=== PATIENT | female | born 1955 | race Caucasian/White ===

== ENCOUNTER 2020-05-15 10:13 | Outpatient (REF) | payer MEDICARE, SELFPAY ==
[2020-05-15 11:06] LABS: Alanine Aminotransferase 21 U/L (0-31); Anion Gap 15 (12-20); Aspartate Amino Transferase 22 U/L (5-31); Blood Urea Nitrogen 19 mg/dL (9-16); Carbon Dioxide 23 mmol/L (22-29); Chloride 104 mmol/L (96-108); Estimated Glomerular Filt Rate > 60; Potassium 4.6 mmol/L (3.3-5.1); Sodium 137 mmol/L (135-145)
[2020-05-15 12:34] LABS: Carbamazepine Tegretol 4.7 mcg/mL (5.0-12.0)
== END 2020-05-15 10:14 | disposition home or self-care (01) ==
LOC: HO.LAB 10:13
PROVIDERS: PCP Student in an Organized Health Care Education/Training Program; Visit Provider Family Medicine
DX: I10 Essential (primary) hypertension (principal); Z79.899 Other long term (current) drug therapy
CPT/HCPCS: 36415; 80051; 80156; 82565; 84450; 84460; 84520

== ENCOUNTER 2020-12-18 14:08 | Outpatient (REF) | payer MEDICARE, SELFPAY ==
[2020-12-18 15:25] LABS: Appearance Urine CLEAR; Color Urine YELLOW; Glucose Urine UA NEG (NEG); Leukocyte Esterase Urine NEG (NEG); Nitrite Urine NEG (NEG); Urine Blood NEG (NEG); Urine Ketones NEG (NEG); Urine Protein NEG (NEG-TRACE)
== END 2020-12-18 14:09 | disposition home or self-care (01) ==
LOC: HO.LAB 14:08
PROVIDERS: PCP Family Medicine; Visit Provider Family Medicine
DX: R30.0 Dysuria (principal); R35.0 Frequency of micturition
CPT/HCPCS: 81003; 87086

== ENCOUNTER 2021-03-13 13:52 | Outpatient (REF) | payer MEDICARE, SELFPAY ==
--- NOTE | ~2021-03-13 | CT_ITS ---
EXAMINATION: CT CHEST SCREENING CLINICAL INFORMATION: Nicotine dependence. COMPARISON: Chest 02/19/2019 TECHNIQUE: Multidetector volumetric CT imaging of the chest is performed without contrast using low dose technique. Additional 2-D coronal and sagittal reformatted images and axial 3-D maximum intensity projection (MIP) images are generated on the CT workstation. This CT examination was performed using dose optimization techniques as appropriate, variously including the following: *Automated exposure control *Adjustment of mA and/or kV according to patient size (this includes techniques or standardized protocols for targeted exams where dose is matched to indication/reason for exam; i.e. extremities or head) *Use of iterative reconstruction technique DLP: 203 mGy-cm FINDINGS: LUNGS: There are mild centrilobular emphysematous changes of both lungs. There is a 3 mm nodule left upper lobe axial image 126/6, 3 mm nodule right upper lobe axial image 126/6, 2 mm nodule right upper lobe axial image 147/6, 3 mm nodule right upper lobe image 247/6, 3 mm nodule right middle lobe axial image 255/6, several micronodules scattered in both upper lobes and both lower lobes. There is mild bronchial wall thickening in both lower lobes and both upper lobes likely from chronic airway disease. MEDIASTINUM: The thyroid lobes are symmetric and normal. The central trachea and bronchi are widely patent. The heart size and the great vessels are normal caliber. No abnormal sized mediastinal lymph nodes or mass seen. PLEURA: There is no pleural effusion or plaque. There is mild thickening of left diaphragmatic pleura. AXILLA: Small shotty lymph nodes are seen in the axilla. UPPER ABDOMEN: There are gastric bypass surgical changes. Visualized liver, spleen, pancreas, and left adrenal gland appear unremarkable. There is a right adrenal 2.3 cm lesion measuring -20 Hounsfield units, likely a lipoma. The gallbladder is out. OSSEOUS STRUCTURES: There are degenerative disc changes with spondylosis of dorsal spine. No lytic or sclerotic process seen. Mild chronic airway disease with peribronchial wall thickening. CT/CT lung screening IMPRESSION: There is centrilobular emphysema with multiple pulmonary nodules in the range of 2-3 mm. ASSESSMENT: Lung-RADS category 2: Benign. RECOMMENDATION: Low-dose annual CT chest exam.
== END 2021-03-13 13:53 | disposition home or self-care (01) ==
LOC: HO.CT 13:52
PROVIDERS: PCP Family Medicine; Visit Provider Physician Assistant Medical
DX: Z12.2 Encounter for screening for malignant neoplasm of respiratory organs (principal); F17.210 Nicotine dependence, cigarettes, uncomplicated
CPT/HCPCS: 71271; G0296

== ENCOUNTER 2021-04-29 09:34 | Emergency (ER) | payer MEDICARE, SELFPAY ==
[2021-04-29 09:37] VITALS: BP 150/74; PULSE 59; RESP 16; TEMP 36.6; O2SAT 100; BMI 29.0
--- NOTE | 2021-04-29 11:17 | ED_ITS ---
HPI - Allergic Reaction General Chief complaint: Allergic Reaction Stated complaint: quest allergic reaction diff to swallow Time Seen by Provider: 04/29/21 11:30 Source: patient Mode of arrival: ambulatory Limitations: no limitations History of Present Illness HPI narrative: 65-year-old female presents to the ED with past medical history of high blood pressure presents to ED for allergic reaction. Patient states this morning around 02:00 she woke up with her tongue swollen and left side of face swollen. Patient states she was asymptomatic before going to sleep. Patient states yesterday he had bark grinder for the 1st time and does not know if that is the cause of her allergic reaction. Patient states she also takes lisinopril for her blood pressure. Patient states she last took it yesterday. This morning she discuss case with her primary care provider took her off lisinopril and told her to go to the ER. Patient states facial swelling and tongue swelling has improved. Patient feels like some Benadryl stuck in the throat. Patient states she took Benadryl this morning swallowed it. Patient denies any recent dental work Related Data Previous Rx's Medication Instructions Recorded diphenhydramine HCl 25 mg capsule 25 mg PO TID PRN 10 Days #30 cap 04/29/21 (Benadryl) epinephrine 0.3 mg/0.3 mL 0.3 mg (0.3 mL) IM Q10M PRN #2 ea 04/29/21 injection, auto-injector famotidine 20 mg tablet (Pepcid) 20 mg PO BID 10 Days #20 tab 04/29/21 prednisone 20 mg tablet 40 mg PO DAILY 5 Days #10 tab 04/29/21 Allergies Allergy/AdvReac Type Severity Reaction Status Date / Time Iodinated Contrast Allergy Unknown UNKNOWN Unverified 12/20/19 16:04 Media [IV Dye, Iodine Containing] From Demerol Allergy Intermediate SICK Uncoded 12/20/19 16:04 Review of Systems Verdana 4l Review of Systems: Verdana 4d Left-sided facial swelling Verdana 4d and tongue swelling Verdana 4d Yes all other systems are reviewed and are negative [facility] Past Medical History Medical History (Updated 04/29/21 @ 14:22 by ABDOUL Briscoe) History of subdural hematoma History of uterine cancer Hypertension, essential, benign Personal history of nicotine dependence Surgical History (Updated 03/13/21 @ 13:41 by Arely Chiu PA-C) History of appendectomy History of cholecystectomy History of Michaela-en-Y gastric bypass History of total hysterectomy Social History Social History (Updated 03/13/21 @ 13:53 by Arely Chiu PA-C) Patient Tobacco Use Status: Current everyday Tobacco user Tobacco use type: Cigarette Cigarette Packs Per Day: 10 Years Smoked: onset 14, x 33yrs - max 1ppd, currently 1/2ppd, 30pyh Advance Directives: Yes Advance Directives Information Provided: Yes Advance Directives on File: No Physical Exam Verdana 4l Vital Signs: Verdana 4d Verdana 4d Vital Signs: Verdana 4d Verdana 4Bd Last Vital Signs Verdana 4d Supervisor Fertilizer New 4d Supervisor Fertilizer New 4d Temp 97.7 F 04/29/21 12:00 Supervisor Fertilizer New 4d Pulse 55 04/29/21 12:00 Supervisor Fertilizer New 4d Resp 18 04/29/21 12:00 BP 134/69 04/29/21 12:00 Pulse Ox 100 04/29/21 12:00 BMI result Body Mass Index 29.0 Const: General: cooperative, healthy appearing, comfortable, no acute distress, well developed, alert, awake and Physically active Orientation/consciousness: oriented to time and patient oriented x3 HENMT: Other: Face no longer swollen. On my exam slight swelling of tongue. patient uvula slightly swollen. Negative for any dental caries. Patient speaking in full sentences. Eyes: General: appearance normal, both eyes and all related structures Neck: Neck: Yes normal visual inspection, Yes full ROM, Yes no lymphadenopathy, Yes no meningeal signs, Yes trachea midline, Yes supple, Yes anterior neck swelling and No tender Chest: Chest palpation & inspection: normal inspection of the chest and normal palpation of entire chest wall Resp: Effort & Inspection: normal respiratory effort and able to speak in complete sentences Auscultation: clear to auscultation bilaterally Cardio: Jugular venous distension: no JVD Heart sounds: S1 normal heart sound present and S2 normal heart sound present GI: Inspection: Yes normal to inspection and No abdominal wall ecchymosis Palpation (GI): Soft to palpation, not firm, nontender, no guarding and not rigid : General: No CVA tenderness and Yes no CVA tenderness Back/Spine/Pelvis: Back: no CVA tenderness, No CVA tenderness and No back tenderness Skin: General skin exam: no rashes or lesions noted and elasticity normal Neuro: General: oriented to time, patient oriented x3, gait normal, no meningeal signs and CN's II-XI intact bilaterally Cranial nerves: Yes CN's II-XII intact bilaterally Extrem: General: Yes normal to inspection and Yes full ROM Psych: Appearance: grossly normal, well kempt and not disheveled Course Course Course Narrative: Presently patient is not in any respiratory distress. Will order Benadryl, Solu-Medrol, and Pepcid. Will re-evaluate patient Reevaluation(s) Reevaluation #1: After being in the ER for Four hours patient states feeling significantly better. Patient no longer has a sensation of tongue being swollen. Patient states she is able to swallow her Benadryl pills. Patient was informed she will be discharged with Benadryl, Pepcid, and prednisone. Discussion was brought up i n regards to EpiPEN, but patient states her PCP did not recommend her using epi pen due to her age and of Blood pressure. Spoke with Dr. Quick, her PCP, and he states it was ok to prescribe patient with epipen and to only use in emergency such as anayphylaxis. Time: 14:21 MDM - Allergic Reaction MDM Narrative Medical decision making narrative: Allergic reaction Discharge Plan Discharge Clinical Impression: Allergic reaction Patient Disposition: Home, Self-Care Instructions: General Allergic Reaction (ED) Additional Instructions: Return to the ED immediately for shortness of breath, chest pain, swelling of tongue, swelling of lips, facial swelling, sensation of throat closing, rash, or any other concerning symptoms. You will be prescribed medication for allergic reaction. Please follow-up with primary care provider. Prescriptions: New diphenhydramine HCl [Benadryl] 25 mg capsule 25 mg PO TID PRN (Reason: allergic reaction) 10 Days Qty: 30 0RF famotidine [Pepcid] 20 mg tablet 20 mg PO BID 10 Days Qty: 20 0RF prednisone 20 mg tablet 40 mg PO DAILY 5 Days Qty: 10 0RF epinephrine 0.3 mg/0.3 mL auto-injector 0.3 mg IM Q10M PRN (Reason: anaphylaxis) Qty: 2 0RF Rx Instructions: for 2 doses. Use only for anaphylaxis reaction. inject into thigh. Stand Alone Forms: Work/School Release Interventions: ED Discharge Assessment Last Done: 04/29/21 14:32 Discharge Date/Time: 04/29/21 14:33 Print Language: Occitan
[2021-04-29] MEDS: diphenhydrAMINE HCL 50 MG/ML VIAL IVPUSH (11:42)
[2021-04-29] MEDS: Famotidine/PF 20 MG/2 ML VIAL IVPUSH (11:42)
[2021-04-29] MEDS: methylPREDNISolone Sod Succ 125 MG/2 ML VIAL IVPUSH (11:42)
[2021-04-29 12:00] VITALS: BP 134/69; PULSE 55; RESP 18; TEMP 36.5; O2SAT 100
--- NOTE | 2021-04-29 12:10 | PC.NURSE ---
patient a&ox3, vss, pt ambulated independently to bathroom, pt medicated per order, call [place] withinr each, will continue to monitor
== END 2021-04-29 14:33 | disposition home or self-care (01) ==
PROVIDERS: Emergency Provider Emergency Medicine; PCP Family Medicine
DX: T78.40XA Allergy, unspecified, initial encounter (principal); R22.0 Localized swelling, mass and lump, head; X58.XXXA Exposure to other specified factors, initial encounter
CPT/HCPCS: 96374; 96375; 99284; J1200; J2930

== ENCOUNTER 2022-01-20 10:20 | Outpatient (REF) | payer MEDICARE, SELFPAY ==
[2022-01-20 12:46] LABS: Alanine Aminotransferase 12 U/L (0-31); Anion Gap 15 (12-20); Aspartate Amino Transferase 16 U/L (5-31); Blood Urea Nitrogen 16 mg/dL (9-16); Carbon Dioxide 24 mmol/L (22-29); Chloride 106 mmol/L (96-108); Estimated Glomerular Filt Rate > 60; Potassium 4.2 mmol/L (3.3-5.1); Sodium 141 mmol/L (135-145)
[2022-01-20 12:55] LABS: Carbamazepine Tegretol 5.1 mcg/mL (5.0-12.0)
== END 2022-01-20 10:21 | disposition home or self-care (01) ==
LOC: HO.LAB 10:20
PROVIDERS: PCP Family Medicine; Visit Provider Family Medicine
DX: I10 Essential (primary) hypertension (principal); Z79.899 Other long term (current) drug therapy
CPT/HCPCS: 36415; 80051; 80156; 82565; 84450; 84460; 84520

== ENCOUNTER 2022-07-20 08:49 | Outpatient (REF) | payer MEDICARE, SELFPAY ==
--- NOTE | ~2022-07-20 | CT_ITS ---
EXAMINATION: CT CHEST SCREENING CLINICAL INFORMATION: Current smoker. 51 pack year history. COMPARISON: Previous exam March 2021 TECHNIQUE: Multidetector volumetric CT imaging of the chest is performed without contrast using low dose technique. Additional 2D coronal and sagittal reformatted images and axial 3D maximum intensity projection (MIP) images are generated on the CT workstation. This CT examination was performed using dose optimization techniques as appropriate, variously including the following: *Automated exposure control *Adjustment of mA and/or kV according to patient size (this includes techniques or standardized protocols for targeted exams where dose is matched to indication/reason for exam; i.e. extremities or head) *Use of iterative reconstruction technique DLP: 46 mGy-cm FINDINGS: LUNGS: Mild emphysema. Small stable bilateral upper lung nodules largest measuring 3 mm for example axial image 127 series 5 and 135 series 5 left upper lobe and 3 mm in the right upper lobe axial image 214 series 5. No new pulmonary nodules. No endobronchial or endotracheal lesion.. MEDIASTINUM: The mediastinum is normal. CORONARY ARTERY CALCIFICATION: None visualized on this study. PLEURA: There is no pleural effusion. No pleural mass or thickening. AXILLA: No lymphadenopathy. UPPER ABDOMEN: Postsurgical changes to the stomach. Stable low-attenuation 2 cm right adrenal nodule. This probably represents a benign adenoma. No imaging follow-up recommended. Cholecystectomy. OSSEOUS STRUCTURES: Degenerative changes of the spine. CT/CT lung screening IMPRESSION: Mild emphysema. Stable small pulmonary nodules or micronodules. ASSESSMENT: Lung-RADS category 2: Benign RECOMMENDATION: Annual low-dose chest CT follow-up recommended
[2022-07-20 09:22] LABS: MANUAL DIFF FLAG NO
[2022-07-20 09:30] LABS: Basophils Absolute Auto 0.1 X10*3/uL (0.0-0.2); Basophils Percent Auto 0.9 % (0-2); Eosinophils Absolute Auto 0.1 X10*3/uL (0.0-0.4); Eosinophils Percent Auto 1.6 % (0-4); Hematocrit 45.2 % (37.0-47.0); Hemoglobin 15.2 g/dl (12.0-16.0); Imm Gran Abs Auto 0.03 X10*3/uL (0.00-0.03); Imm Gran Pct Auto 0.4 % (0.0-0.4); Lymphocytes Absolute Auto 1.7 X10*3/uL (1.2-4.9); Lymphocytes Percent Auto 21.3 % (20-40); Mean Corpuscular HGB Conc 33.6 g/dl (31.0-35.0); Mean Corpuscular Hemoglobin 33.3 pg (27.0-33.0); Mean Corpuscular Volume 99.1 fL (80.0-98.0); Mean Platelet Volume 9.7 fL (9.4-12.3); Monocytes Absolute Auto 0.6 X10*3/uL (0.1-1.2); Neutrophils Absolute Auto 5.3 x10*3/uL (2.0-8.3); Neutrophils Percent Auto 67.8 % (45-73); Platelet Count 219 X10*3/uL (160-400); Red Blood Count 4.56 X10*6/uL (4.20-5.50); Red Cell Distribution Width 13.2 % (11.0-16.0); White Blood Count 7.9 X10*3/uL (4.8-10.8)
[2022-07-20 10:05] LABS: Carbamazepine Tegretol 7.8 mcg/mL (5.0-12.0)
[2022-07-20 10:08] LABS: Alanine Aminotransferase 16 U/L (0-31); Anion Gap 17 (12-20); Aspartate Amino Transferase 18 U/L (5-31); Blood Urea Nitrogen 13 mg/dL (9-16); Carbon Dioxide 24 mmol/L (22-29); Chloride 100 mmol/L (96-108); Estimated Glomerular Filt Rate > 60; Potassium 4.5 mmol/L (3.3-5.1); Sodium 136 mmol/L (135-145)
== END 2022-07-20 08:50 | disposition home or self-care (01) ==
LOC: HO.CT 08:49
PROVIDERS: Absent Provider Family Medicine; PCP Family Medicine; Visit Provider Physician Assistant Medical
DX: Z12.2 Encounter for screening for malignant neoplasm of respiratory organs (principal); F17.210 Nicotine dependence, cigarettes, uncomplicated; I10 Essential (primary) hypertension; D64.9 Anemia, unspecified; Z79.899 Other long term (current) drug therapy
CPT/HCPCS: 36415; 71271; 80051; 80156; 82565; 84450; 84460; 84520; 85025

== ENCOUNTER 2023-03-04 10:01 | Outpatient (REF) | payer MEDICARE, SELFPAY ==
[2023-03-04 10:59] LABS: Carbamazepine Tegretol 7.2 mcg/mL (5.0-12.0)
[2023-03-04 11:04] LABS: Anion Gap 15 (12-20); Blood Urea Nitrogen 14 mg/dL (9-16); Carbon Dioxide 23 mmol/L (22-29); Chloride 106 mmol/L (96-108); Estimated Glomerular Filt Rate > 60; Potassium 4.3 mmol/L (3.3-5.1); Sodium 140 mmol/L (135-145)
== END 2023-03-04 10:02 | disposition home or self-care (01) ==
LOC: HO.LAB 10:01
PROVIDERS: PCP Family Medicine; Visit Provider Family Medicine
DX: I10 Essential (primary) hypertension (principal); Z79.899 Other long term (current) drug therapy
CPT/HCPCS: 36415; 80051; 80156; 82565; 84520

== ENCOUNTER 2023-08-11 08:35 | Outpatient (REF) | payer MEDICARE, SELFPAY ==
--- NOTE | ~2023-08-11 | CT_ITS ---
EXAMINATION: CT LOW-DOSE SCREENING CHEST WITHOUT CONTRAST CLINICAL INFORMATION: Nicotine dependence, cigarettes, uncomplicated. The patient is a current smoker with a 52 pack-year history of smoking. COMPARISON: CT chest 07/20/2022. X-ray chest 02/19/2019. TECHNIQUE: Multidetector volumetric CT imaging of the chest is performed on a Siemens SOMATOM Definition scanner without contrast using low dose technique. Additional 2D coronal and sagittal reformatted images and axial 3D maximum intensity projection (MIP) images are generated on the CT workstation. This CT examination was performed using dose optimization techniques as appropriate, variously including the following: *Automated exposure control *Adjustment of mA and/or kV according to patient size (this includes techniques or standardized protocols for targeted exams where dose is matched to indication/reason for exam; i.e. extremities or head) *Use of iterative reconstruction technique TOTAL EXAM DLP: 47 mGy-cm. CTDIvol: 1.43 mGy. FINDINGS: PULMONARY NODULES: Small pulmonary nodules are again seen the largest measuring 4 mm in the left upper lobe and unchanged (5:161 compare prior 5:147). Dennis images of all nodules have been saved. LUNGS: Lungs bilaterally symmetrically expanded. There is mild emphysema with mild bronchial thickening. No effusion or pneumothorax. Central airways patent. MEDIASTINUM: No mediastinal, hilar or axillary adenopathy or free fluid collection. CORONARY ARTERY CALCIFICATION: None visualized on this study. THYROID GLAND: Unremarkable to the extent seen. CARDIOVASCULAR STRUCTURES: Aortic and heart size normal. No pericardial effusion. CHEST WALL/AXILLA: Unremarkable. UPPER ABDOMEN: Status post cholecystectomy. Fat density 2.4 cm right adrenal nodule unchanged consistent with a benign adenoma. No followup is needed. Included portions of the solid organs in the upper abdomen unremarkable on noncontrast imaging. OSSEOUS STRUCTURES: No suspicious focal findings. Mild degenerative changes are present in the spine. CT/CT lung screening IMPRESSION: Stable benign nodules with no evidence of malignancy. ASSESSMENT: 1. Lung-RADS Category 2: Benign appearance or behavior of nodules. N/A. 2. Lung-RADS Category S: Negative. There are no clinically significant or potentially clinically significant findings not related to the lungs requiring urgent additional evaluation. RECOMMENDATION: Continued routine annual low-dose CT lung screening in 1 year is recommended. An order for CT CHEST LOW DOSE CANCER SCREENING ([id number]) can be placed.
== END 2023-08-11 08:36 | disposition home or self-care (01) ==
LOC: HO.CT 08:35
PROVIDERS: PCP Family Medicine; Visit Provider Nurse Practitioner Family
DX: Z12.2 Encounter for screening for malignant neoplasm of respiratory organs (principal); F17.210 Nicotine dependence, cigarettes, uncomplicated
CPT/HCPCS: 71271

== ENCOUNTER 2023-09-30 09:39 | Outpatient (REF) | payer MEDICARE, SELFPAY ==
[2023-09-30 09:57] LABS: MANUAL DIFF FLAG NO
[2023-09-30 10:39] LABS: Basophils Absolute Auto 0.1 X10*3/uL (0.0-0.2); Basophils Percent Auto 0.9 % (0-2); Eosinophils Absolute Auto 0.1 X10*3/uL (0.0-0.4); Eosinophils Percent Auto 1.6 % (0-4); Hematocrit 40.7 % (37.0-47.0); Hemoglobin 13.6 g/dl (12.0-16.0); Imm Gran Abs Auto 0.03 X10*3/uL (0.00-0.03); Imm Gran Pct Auto 0.5 % (0.0-0.4); Lymphocytes Absolute Auto 1.5 X10*3/uL (1.2-4.9); Lymphocytes Percent Auto 23.3 % (20-40); Mean Corpuscular HGB Conc 33.4 g/dl (31.0-35.0); Mean Corpuscular Hemoglobin 33.9 pg (27.0-33.0); Mean Corpuscular Volume 101.5 fL (80.0-98.0); Mean Platelet Volume 9.4 fL (9.4-12.3); Monocytes Absolute Auto 0.6 X10*3/uL (0.1-1.2); Monocytes Percent Auto 9.1 % (2-11); Neutrophils Absolute Auto 4.1 x10*3/uL (2.0-8.3); Neutrophils Percent Auto 64.6 % (45-73); Platelet Count 206 X10*3/uL (160-400); Red Blood Count 4.01 X10*6/uL (4.20-5.50); Red Cell Distribution Width 12.9 % (11.0-16.0); White Blood Count 6.4 X10*3/uL (4.8-10.8)
[2023-09-30 11:12] LABS: Alanine Aminotransferase 16 U/L (0-31); Anion Gap 14 (12-20); Aspartate Amino Transferase 20 U/L (5-31); Blood Urea Nitrogen 14 mg/dL (9-16); Carbon Dioxide 23 mmol/L (22-29); Chloride 106 mmol/L (96-108); Potassium 4.2 mmol/L (3.3-5.1); Sodium 139 mmol/L (135-145)
[2023-09-30 11:26] LABS: Carbamazepine Tegretol 5.1 mcg/mL (5.0-12.0)
== END 2023-09-30 09:40 | disposition home or self-care (01) ==
LOC: HO.LAB 09:39
PROVIDERS: PCP Family Medicine; Visit Provider Family Medicine
DX: I10 Essential (primary) hypertension (principal); D50.9 Iron deficiency anemia, unspecified; Z79.899 Other long term (current) drug therapy
CPT/HCPCS: 36415; 80051; 80156; 82550; 84450; 84460; 84520; 85025

== ENCOUNTER 2024-02-24 13:26 | Outpatient (REF) | payer MEDICARE, SELFPAY ==
[2024-02-24 11:07] VITALS: PULSE 55; O2SAT 98
--- NOTE | 2024-02-24 13:31 | PFT_ITS ---
Indication: Dyspnea Spirometry [FEV1 to FVC 65%; FEV1 1.75 L; FVC 2.69 L. No significant response to bronchodilators noted. Maximum voluntary ventilation 89% predicted] Lung Volumes [Total lung capacity 88% predicted; residual volume 91% predicted] Diffusion Capacity [DLCO 85% predicted] Comparisons [None] Interpretation [There is an obstructive ventilatory defect consistent with moderate COPD. No significant response to bronchodilators noted. Normal maximum voluntary ventilation. Normal lung volumes and normal diffusing capacity. Clinical correlation warranted.] MTDD
== END 2024-02-24 13:27 | disposition home or self-care (01) ==
LOC: HO.RESP 13:26
PROVIDERS: PCP Family Medicine; Visit Provider Family Medicine
DX: R06.02 Shortness of breath (principal); F17.210 Nicotine dependence, cigarettes, uncomplicated
CPT/HCPCS: 94010; 94640; 94727; 94729

== ENCOUNTER → 2024-02-24 13:31 | Outpatient (BNV) | payer MEDICARE, SELFPAY | PROVIDERS: PCP Family Medicine; Visit Provider Hospitalist | DX: J44.9 Chronic obstructive pulmonary disease, unspecified (principal) | CPT/HCPCS: 94060; 94727; 94729 ==

== ENCOUNTER 2024-07-02 11:47 | Outpatient (REF) | payer MEDICARE, SELFPAY ==
[2024-07-02 13:25] LABS: Alanine Aminotransferase 18 U/L (0-31); Anion Gap 13 (12-20); Aspartate Amino Transferase 21 U/L (5-31); Blood Urea Nitrogen 14 mg/dL (9-16); Carbon Dioxide 24 mmol/L (22-29); Chloride 106 mmol/L (96-108); Estimated Glomerular Filt Rate > 60; Sodium 139 mmol/L (135-145)
[2024-07-02 13:36] LABS: Carbamazepine Tegretol 5.1 mcg/mL (5.0-12.0)
== END 2024-07-02 11:48 | disposition home or self-care (01) ==
LOC: HO.LAB 11:47
PROVIDERS: PCP Family Medicine; Visit Provider Family Medicine
DX: I10 Essential (primary) hypertension (principal); Z79.899 Other long term (current) drug therapy
CPT/HCPCS: 36415; 80051; 80156; 82550; 82565; 84450; 84460; 84520

== ENCOUNTER 2024-08-14 09:44 | Outpatient (REF) | payer MEDICARE, SELFPAY ==
--- NOTE | ~2024-08-14 | CT_ITS ---
CLINICAL HISTORY: F17.210 - Nicotine dependence, cigarettes, uncomplicated Examination CT lung cancer screening History Screening examination performed for pulmonary nodules Technique Axial CT images of the chest using low-dose technique. Effective radiation dose total: 45.7 mGy-cm, CTDIvol 1.2 mGy. Referring provider counseled the patient on shared decision-making for LDCT screening. Additional counseling was provided on smoking cessation. Comparison: CT/REG/DE/SR - CT LUNG SCREENING - 08/11/23 08:[address]/REG/DE/SR - CT LUNG SCREENING - 07/20/22 08:55 EDT Findings: Lungs: Stable pulmonary nodules measuring up to 5 mm (series 6 image 42 on the current study and series 6 image 161 on the prior study. Mild paraseptal and centrilobular emphysema with mild bronchial wall thickening Coronary artery calcifications: None Other: None Limited upper abdomen: Status post cholecystectomy. Status post Michaela-en-Y gastrojejunostomy Impression: LungRADS 2 - Benign Appearance: Continue annual screening with low dose Chest CT in 12 months. ##L2# Category 1: Normal; continue annual screening Category 2: Benign appearance or behavior, continue annual screening Category 3: Probably benign, [address] recommended Category 4A: Suspicious, [address] recommended; may consider PET/CT Category 4B: Suspicious, Additional diagnostics and/or tissue sampling recommended Category 4X: Suspicious, Additional diagnostics and/or tissue sampling recommended Category 0: Recalls (incomplete screen due to Incomplete coverage, Noise, Respiratory motion, Expiration, Obscured by acute abnormality) This document has been electronically signed by: Lucila Hernandez MD on 08/14/2024 21:53:15
== END 2024-08-14 09:45 | disposition home or self-care (01) ==
LOC: HO.CT 09:44
PROVIDERS: PCP Family Medicine; Visit Provider Physician Assistant Medical
DX: Z12.2 Encounter for screening for malignant neoplasm of respiratory organs (principal); F17.210 Nicotine dependence, cigarettes, uncomplicated
CPT/HCPCS: 71271

== ENCOUNTER → 2024-08-14 09:46 | Outpatient (BNV) | payer MEDICARE, SELFPAY | PROVIDERS: PCP Family Medicine; Visit Provider Radiology Diagnostic Radiology | DX: F17.210 Nicotine dependence, cigarettes, uncomplicated (principal) | CPT/HCPCS: 71271 ==

== ENCOUNTER 2024-11-08 09:16 | Outpatient (AMB) | payer MEDICARE, SELFPAY ==
--- NOTE | 2024-11-08 09:17 | A.OFFPC_ITS ---
Vital Signs 11/08/24 09:19 11/08/24 09:26 Height 5 ft 4.5 in Weight 167 lb BMI 28.2 BP 148/74 H Blood Pressure Location Lt brachial Position Sitting Respiration 17 Pulse 55 Pulse Source Pulse Oximeter Temp 97.4 F Temp Source Temporal Artery Scan Pulse Oximetry (%) 97 Oxygen Delivery Method Room Air Intake Visit Reasons: 4 MO F/UP - LUBA PT - GURMEET MARRERO Medical Lab Scientist Required: No Accompanied by: Self / Same As Patient Allergies Iodinated Contrast Media (IV Dye, Iodine Containing) Allergy (Unknown, Verified 11/08/24 09:18) UNKNOWN From Demerol Allergy (Intermediate, Uncoded 12/20/19 16:04) SICK Tobacco use date assessed: 11/08/24 HPI HPI Comments History of Present Illness Details The patient is a 69 year old female with a past medical history of depression, COPD, GERD, IBS D, diverticulosis, SDH/ICH 2017, epilepsy presenting to [facility]. She was following with Dr Morales -last visit July. CV: Has seen Dr Ruvalcaba. On norvasc, metoprolol, hydralazine. Denies chest pain, dizziness [facility] Lung cancer screening 08/2024 GI: Followed with Dr Allen. Does not see routinely. Recent colonoscopy-10 year if needed. -On effexor 75mg daily Neuro-Romulo Goode. continues tegretol s/p 2017 SDH/ICH with seizure Publishing Director-Dr Rodger yousif. no shingrix Pneumovax 23 01/2020 Prevnar 13 2018 ROS CONSTITUTIONAL: Denies weight loss, fever and chills. HEENT: Denies changes in vision and hearing. RESPIRATORY: Denies SOB and cough. CV: Denies palpitations and CP GI: Denies abdominal pain, nausea, vomiting and diarrhea. : Denies dysuria and urinary frequency. MSK: Denies new myalgia and joint pain. SKIN: Denies rash and pruritus. NEUROLOGICAL: Denies headache PSYCHIATRIC: Denies recent changes in mood. PHYSICAL EXAM: GENERAL: Alert and oriented x 3. NAD EYES: EOMI. Anicteric. HENT: Moist mucous membranes. No scleral icterus. No cervical lymphadenopathy. LUNGS: Clear to auscultation bilaterally. CARDIOVASCULAR: Regular rate and rhythm. No murmur. No JVD. ABDOMEN: Soft, non-tender +bs EXTREMITIES: No edema. Non-tender. SKIN: No rashes or lesions. Warm. NEUROLOGIC: No focal neurological deficits. CN II-XII grossly intact PSYCHIATRIC: Cooperative. Appropriate mood and affect [facility] Medical History Nicotine dependence, cigarettes, uncomplicated Hypertension, essential, benign History of subdural hematoma History of uterine cancer Surgical History History of cholecystectomy History of Michaela-en-Y gastric bypass History of appendectomy History of total hysterectomy Social History Patient Tobacco Use Status: Current everyday Tobacco user Tobacco use type: Cigarette Cigarette Packs Per Day: 10 Years Smoked: onset 14, x 33yrs - max 1ppd, currently 1/2ppd, 30pyh e-Cigarette/Vaping Use: Never Used Questionnaire AUDIT C Alcohol Use Questionnaire (AUDIT-C) 1. How often do you have a drink containing alcohol?: 4 or more times a week 2. How many drinks containing alcohol do you have on a typical day when you are drinking?: 1 or 2 Total Score: 4 Physical exam (Primary Care) Vital Signs: Last Vital Signs Temp 97.4 F 11/08/24 09:26 Pulse 55 11/08/24 09:26 Resp 17 11/08/24 09:26 BP 148/74 H 11/08/24 09:26 Pulse Ox 97 11/08/24 09:26 Oxygen Delivery Method Room Air 11/08/24 09:26 BMI result Body Mass Index 28.2 Tobacco/Smoking Status: Tobacco use Status Tobacco use date assessed 11/08/24 11/08/24 09:29 Patient Tobacco Use Status Current everyday Tobacco 11/08/24 09:29 Tobacco use type Cigarette 11/08/24 09:29 e-Cigarette/Vaping Use Never Used 11/08/24 09:29 Coding Level of Care Code New Pt Level 4 (58175) Complex EM visit Add On G2211 Diagnoses Hypertension, essential, benign I10 History of subdural hematoma Z86.79 Encounter to establish care Z76.89 Seizure R56.9 Nicotine dependence, cigarettes, uncomplicated F17.210 Assessment & Plan Assessment & Plan (1) Hypertension, essential, benign: Code(s): I10 - Essential (primary) hypertension Category: Medical (2) History of subdural hematoma: Comment: (s/p evacuation - followed by neurology) Code(s): Z86.79 - Personal history of other diseases of the circulatory system Category: Medical (3) Encounter to establish care: Code(s): Z76.89 - Persons encountering health services in other specified circumstances Category: Medical (4) Seizure: Code(s): R56.9 - Unspecified convulsions Category: Medical (5) Nicotine dependence, cigarettes, uncomplicated: Comment: (onset 14, x 36yrs, max 1ppd, now 1/2ppd, 30pyh) Code(s): F17.210 - Nicotine dependence, cigarettes, uncomplicated Category: Medical Plan 69 yo to establish care past medical, surgical, social reviewed Mammogram order handed to patient Update labs ordered HTN-well controlled Orders: Orders Complete Blood Count Auto Diff Today Z13.0 - Encounter for screening for diseases of the blood and blood-forming organs and certain disorders involving the immune mechanism MM tomosynthesis screening BI Today Z12.31 - Encounter for screening mammogram for malignant neoplasm of breast Carbamazepine Tegretol Today R56.9 - Unspecified convulsions, Z13.0 - Encounter for screening for diseases of the blood and blood-forming organs and certain disorders involving the immune mechanism, Z86.79 - Personal history of other diseases of the circulatory system Comprehensive Met. Panel Today I10 - Essential (primary) hypertension Lipid Panel Today I10 - Essential (primary) hypertension, Z13.220 - Encounter for screening for lipoid disorders Medications: Discontinued famotidine (Pepcid) Discontinued Reason: Patient Completed Course 20 mg PO BID 10 days 20 tabs 0RF diphenhydramine HCl (Benadryl) Discontinued Reason: Patient Completed Course 25 mg PO TID 10 days PRN 30 caps 0RF allergic reaction prednisone Discontinued Reason: Patient Completed Course 40 mg (2 x 20 mg) PO DAILY 5 days 10 tabs 0RF
[2024-11-08 09:19] VITALS: BMI 28.2
[2024-11-08 09:26] VITALS: BP 148/74; PULSE 55; RESP 17; TEMP 36.3; O2SAT 97
--- OUTSIDE RECORDS SUMMARY | 2024-11-08 09:40 | XMS_ITS | Patient Health Record ---
[facility] Address [address] [facility] [place] [address] Care Team Providers Care Counselor Aide Name Role Phone Andrew SHARMA, Ranjeet Primary Care Provider Unavailab Humberto Gold Unavailable [phone] Allergies Allergen (clinical drug ingredient) Drug/Non Drug Allergy documented on EMR Reaction Allergy Type Onset Date Status meperidine Demerol Unknown Drug Allergy Active IVP dye female problems Drug Allergy A ctive Reason For Referral No Information Medications Medication SIG (Take, Route, Frequency, Duration) Notes Start Date End Date Status calcium as directed Active Effexor XR 75 MG 1 capsule with food Orally Once a day; Duration: 30 day(s) Active Iron 325 (65 Fe) MG 1 tablet Orally Once a day; Duration: 30 day(s) Active Metoprolol Succinate ER 25 MG 1 tablet Orally twice a day; Duration: 30 day(s) Active ZyrTEC Allergy 10 MG 1 tablet Orally Onc e a day; Duration: 30 day(s) Active Problems Problem Type SNOMED Code ICD Code Onset Dates Problem Status W/U Status Risk Notes Problem Hallux valgus (536162075) Hallux Valgus (735.0) Active confirmed Problem Tailors bunion (5900712) Tailors Bunion (727.1) Active confirmed Plan Of Treatment Pending Test Test Name Order Date X ray : Foot, right 3V 08/17/2012 Insurance Providers Payer Name Payer Address Payer Phone Subscriber Number Group Number Insured Name Patient Relationship to Insured Coverage Start Date Coverage End Date [employer] [address] [place], [place] [phone] [id number] Marzena Perry Self - patient is the insured Medical (General) History Medical History History ICD Code mumps measles hypertension diverticulitis chicken pox cancer back, hip, knee pain Surgical History Surgery Date(Month/Year) bunionectomy hysterectomy gall bladder cancer surgery endometrial ablation
== END 2024-11-08 09:54 | disposition home or self-care (01) ==
LOC: HO.HMCHD 09:17
PROVIDERS: PCP Family Medicine; Visit Provider Internal Medicine
DX: I10 Essential (primary) hypertension (principal); Z86.79 Personal history of other diseases of the circulatory system; Z76.89 Persons encountering health services in other specified circumstances; R56.9 Unspecified convulsions; F17.210 Nicotine dependence, cigarettes, uncomplicated

== ENCOUNTER → 2024-11-08 09:16 | Outpatient (BNVA) | payer MEDICARE, SELFPAY | PROVIDERS: PCP Family Medicine; Visit Provider Internal Medicine | DX: I10 Essential (primary) hypertension (principal); Z86.79 Personal history of other diseases of the circulatory system; Z76.89 Persons encountering health services in other specified circumstances; R56.9 Unspecified convulsions; F17.210 Nicotine dependence, cigarettes, uncomplicated | CPT/HCPCS: 99202 ==